=== PATIENT | female | born 2000 | race Caucasian/White ===

== ENCOUNTER 2024-05-13 23:07 | Emergency (ER) | payer SELFPAY ==
[2024-05-14 01:06] LABS: Specific Gravity > 1.030 (1.005-1.030)
[2024-05-14 01:07] LABS: Specific Gravity > 1.030 (1.005-1.030); Sqamous Epithelial <5 /HPF (None Seen); Urine Bacteria <20 /HPF (<20); Urine Bilirubin NEGATIVE (Negative); Urine Blood Negative (Negative); Urine Clarity Clear (Clear); Urine Color Light-Yellow (Yellow); Urine Culture Reflex Order NOT NEEDED; Urine Glucose NEGATIVE (Negative); Urine Ketones NEGATIVE (Negative); Urine Microscopic Reflex YN ORDER UMIC; Urine Mucus Slight /HPF (None Seen); Urine Nitrite NEGATIVE (Negative); Urine Protein TRACE (Negative); Urine RBC <5 /HPF (None Seen); Urine Urobilinogen Normal (Normal); Urine WBC <5 /HPF (<5); Urine pH 5.5 (5.0-7.0)
[2024-05-14 01:08] LABS: D-Dimer 1.283 FEUug/mL (0-0.500); PT Prothrombin Time 11.9 SECONDS (9.4-12.5); Protime INR 1.06
[2024-05-14 01:13] LABS: Absolute Eosinophils 0.1 K/uL (0-0.5); Absolute Lymphocytes (CBC) 1.3 K/uL (0.7-4.9); Absolute Monocytes 0.6 K/uL (0.1-1.3); Absolute Neutrophil 5.7 K/uL (1.8-8.0); Basophils % 0.6 % (0-1.3); Eosinophils % 1.7 % (0-4.4); Hematocrit 42.1 % (36.0-45.0); Hemoglobin 14.1 g/dL (12.0-15.0); Lymphocytes % 16.4 % (15.3-44.8); MCH 27.7 pg (27.0-35.0); MCHC 33.4 g/dL (32.0-36.0); MCV 82.9 fL (80-100); MPV 9.5 fL (7.6-11.3); Monocytes % 7.9 % (3.3-12.3); Neutrophils % 73.4 % (41.7-73.7); Nucleated Red Blood Cells % 0.2 % (0-0); Platelets 300 thou/uL (152-406); RBC Red Blood Cell Count 5.08 M/uL (3.86-4.86); Red Cell Distribution Width 13.5 % (12.1-15.2)
[2024-05-14 01:14] LABS: ALT/SGPT 21 U/L (13-56); AST/SGOT 12 U/L (15-37); Albumin 3.3 g/dL (3.4-5.0); Albumin/Globulin Ratio 0.8 (1.1-1.8); Alkaline Phosphatase 70 U/L (45-117); Anion Gap 8.5 mEq/L (5.0-15.0); BUN Blood Urea Nitrogen 8 mg/dL (7-18); Bicarbonate 24 mEq/L (21-32); Bilirubin Total 0.4 mg/dL (0.2-1.0); Globulin 3.9 g/dL (2.3-3.5); Glomerular Filtration Rate 114 ml/min (=/>90); Glucose Level 99 mg/dL (74-106); Magnesium 1.9 mg/dL (1.6-2.4); Potassium 3.5 mEq/L (3.5-5.1); Protein, Total 7.2 g/dL (6.4-8.2); Sodium Level 136 mEq/L (136-145)
[2024-05-14 01:23] LABS: Bilirubin Direct < 0.2 mg/dL (0-0.2); Bilirubin Indirect, Calculated 0.2 mg/dL (0.2-0.8); Troponin High Sensitivity < 3.0 pg/mL (<58.9)
--- NOTE | 2024-05-14 02:32 | RAD REPORT ---
TIME OF STUDY: 05/13/2024 11:48 PM CDT REASON FOR EXAM: CHEST PAIN COMPARISON: None. FINDINGS: AP view of the chest was obtained, chest 1 view. Lungs: Normal lung volume. No mass, or consolidation. Normal pulmonary vascularity.. Pleura: No pneumothorax. There is no pleural effusion. Heart and Mediastinum: Normal cardiomediastinal silhouette and great vessels.. Bones: No acute bony abnormality.. IMPRESSION: 1. No acute cardiopulmonary process. Electronically signed by: Rowdy Paul MD 05/14/2024 01:14 AM CDT RP Due to temporary technical issues with the PACS/[employer] reporting system, reports are being malcolm d by the in-house radiologist without review as a courtesy to ensure prompt reporting the interpreting radiologist is fully responsible for the content of the report. Transcribed Date/Time: 05/14/2024 2:31 AM
--- NOTE | 2024-05-14 04:38 | RAD REPORT ---
EXAM DESCRIPTION: Chest For Pe Angio CLINICAL HISTORY: CHEST PAIN COMPARISON: None Available. TECHNIQUE: CTA of the chest obtained following the uncomplicated intravenous administration of iodina danni contrast. 3-D/MIP reformatted images of the chest available for evaluation. This exam was performed according to our departmental dose-optimization program, which includes automated exposure control, adjustment of the mA and/or kV according to patient size and/or use of iterative reconstruction technique. FINDINGS: Chest: Pulmonary arteries: Contrast bolus is adequate.No filling defects identified in the pulmonary arterie s to suggest pulmonary embolus. Thyroid: No abnormalities of the visualized thyroid. Great Vessels: Great vessels have normal anatomic configuration. Thoracic Aorta: No abnormalities of the thoracic aorta identified. No aortic dissection. Heart: No cardiomegaly, significant pericardial effusion, or coronary artery atherosclerosis Lymph Nodes: No enlarged mediastinal lymph nodes identified. Esophagus: No abnormalities of the esophagus identified. Other: No additional findings. Lungs: Mild bilateral dependent atelectasis. Pleura: No pleural effusion or pneumothorax. Trachea/Airways: No abnormalities of the visualized trachea or airways. Bones: No acute osseous abnormalities identified. Upper Abdomen: Limited images of the upper abdomen demonstrate no definite abnormalities of visualize d portions of the liver, gallbladder, pancreas, spleen, adrenal glands, or kidneys. IMPRESSION: No pulmonary embolus. No aortic dissection. Electronically signed by: Alejandro Marina DO 05/14/2024 04:08 AM CDT 4ZDM Due to temporary technical issues with the PACS/[employer] reporting system, reports are being malcolm d by the in-house radiologist without review as a courtesy to ensure prompt reporting the interpreting radiologist is fully responsible for the content of the report. Transcribed Date/Time: 05/14/2024 4:38 AM
--- NOTE | 2024-05-14 04:54 | EDPHYS ---
Physician Documentation [facility] Name: Naa Garcia Age: 24 yrs Sex: Female : 2000 Arrival Date: 05/13/2024 Time: 23:07 Bed 15 Private MD: ED Physician Mateusz Forrest HPI: 05/14 00:05 This 24 yrs old Female presents to ER via Ambulatory with complaints of Chest Pain. cp 00:05 The patient or guardian reports chest pain that is located primarily in the substernal cp area. The pain does not radiate. Associated signs and symptoms: Pertinent negatives: abdominal pain, cough, diaphoresis, headache, lower extremity pain, lower extremity swelling, shortness of breath, syncope, vomiting. The chest pain is described as ripping. Duration: The patient or guardian reports a single episode, markedly improved. Patient reports pain started this evening while sitting at desk playing game and lasted about 1 and 1/2 hours with pain now markedly improved. Historical: - Allergies: 05/13 23:26 No Known Allergies; ha1 - PMHx: 23:26 Anxiety; Migraine; ha1 - PSHx: 23:26 Tonsillectomy; ha1 - Immunization history:: Adult Immunizations up to date. - Infectious Disease History:: Denies. - Social history:: Smoking status: Patient denies any tobacco usage or history of. ROS: 05/14 00:12 Constitutional: Negative for body aches, chills, fever, poor PO intake, cp Cardiovascular: Positive for chest pain, Negative for edema, palpitations, 00:12 Respiratory: Negative for cough, shortness of breath, wheezing, cp 00:12 Abdomen/GI: Negative for abdominal pain, vomiting, diarrhea, constipation, 00:12 Eyes: Negative for injury, pain, redness, and discharge, cp 00:12 ENT: Negative for drainage from ear(s), ear pain, sore throat, difficulty swallowing, difficulty handling secretions, 00:12 Back: Negative for radiated pain, 00:12 Neuro: Negative for altered mental status, dizziness, headache, numbness, syncope, near cp syncope, weakness, 00:12 All other systems are negative, cp Exam: 05/13 23:25 ECG was reviewed by the Attending Physician. cp 05/14 00:15 Constitutional: The patient appears in no acute distress, alert, awake, comfortable, cp non-diaphoretic, non-toxic, well developed, well nourished, 00:15 Head/Face: Normocephalic, atraumatic. cp 00:15 Eyes: Periorbital structures: appear normal, Conjunctiva: normal, no exudate, no injection, Sclera: no appreciated abnormality, Lids and lashes: appear normal, bilaterally, 00:15 ENT: External ear(s): are unremarkable, Nose: is normal, Mouth: Lips: moist, Oral mucosa: pink and intact, moist, Posterior pharynx: Airway: no evidence of obstruction, patent, 00:15 Chest/axilla: Inspection: normal, 00:15 Cardiovascular: Rate: tachycardic, Rhythm: regular, 00:15 Respiratory: the patient does not display signs of respiratory distress, Respirations: normal, no use of accessory muscles, no retractions, labored breathing, is not present, Breath sounds: are clear throughout, no decreased breath sounds, no stridor, no wheezing, 00:15 Abdomen/GI: Inspection: abdomen appears normal, Palpation: abdomen is soft and non-tender, in all quadrants, 00:15 Back: pain, is absent, ROM is normal, cp 00:15 Neuro: Orientation: to person, place \T\ time. Mentation: is normal, Motor: moves all cp fours, strength is normal, Sensation: is normal, Vital Signs: 05/13 23:12 BP 128 / 81; Pulse 111; Resp 20 S; Temp 97.6; Pulse Ox 100% on R/A; Weight 99.79 kg; ha1 Height 5 ft. 8 in. ; 05/14 01:09 BP 117 / 74; Pulse 91; Resp 17; Temp 97.2; Pulse Ox 99% ; br2 02:00 BP 122 / 73; Pulse 86; Resp 18 S; Temp 97.2; Pulse Ox 97% on R/A; Pain 0/10; br2 02:57 BP 104 / 74; Pulse 90; Resp 18 S; Pulse Ox 98% on R/A; br2 03:55 BP 106 / 74; Pulse 92; Resp 17 S; Temp 97.2; Pulse Ox 100% on R/A; Pain 0/10; br2 04:31 BP 112 / 65; Pulse 74; Resp 14; Pulse Ox 96% ; Pain 0/10; br2 05/13 23:12 Body Mass Index 33.45 (99.79 kg, 172.72 cm) ha1 02:00 Pain Scale: Adult br2 03:55 Pain Scale: Adult br2 04:31 Pain Scale: Adult br2 MDM: 05/13 23:17 Medical Screening Exam initiated 05/14 00:00 Differential diagnosis: acute myocardial infarction, acute pericarditis, cholecystitis, cp Cholelithiasis pancreatitis, peptic ulcer disease, pericarditis, pleurisy, pneumonia, pneumothorax, pulmonary embolus, thoracic aortic disection. 04:23 Data reviewed: vital signs, nurses notes, lab test result(s), EKG, radiologic studies, cp CT scan, plain films, and as a result, I will discharge patient. 04:23 I considered the following discharge prescriptions or medication management in the emergency department Medications were administered in the Emergency Department. See MAR. Independent interpretation of the following test(s) in the Emergency Department EKG: See my EKG interpretation above. 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 Response to treatment: the patient's symptoms have markedly improved after treatment, and as a result, I will discharge patient. Special discussion: Based on the patient's history, exam, and Dx evaluation, there is no indication for emergent intervention or inpatient Tx. It is understood by the patient/guardian that if the Sx's persist or worsen they need to return immediately for re-evaluation. 05/13 23:18 Order name: Urinalysis w/ reflexes; Complete Time: : 05/14 01:41 Interpretation: Normal except: Urine SG > 1.030; UPROT TRACE. 05/13 23:18 Order name: Test, Urine; Complete Time: : 05/13 23:48 Order name: Basic Metabolic Panel; Complete Time: :41 05/13 23:48 Order name: CBC with Diff; Complete Time: : 05/13 23:48 Order name: D-Dimer; Complete Time: 01:41 05/13 23:48 Order name: LFT's; Complete Time: 01:41 05/13 23:48 Order name: Magnesium; Complete Time: 01:41 05/13 23:48 Order name: PT-INR; Complete Time: 01:41 05/13 23:48 Order name: Troponin HS; Complete Time: 01:41 05/14 04:23 Order name: Troponin High Sensitivity 05/13 23:48 Order name: XRAY Chest (1 view) 05/14 02:47 Interpretation: Report review. 05/14 01:41 Order name: CT Chest For PE Angio 05/13 23:18 Order name: EKG; Complete Time: 23:18 05/13 23:18 Order name: EKG - Nurse/Tech; Complete Time: 23:24 05/13 23:48 Order name: Cardiac monitoring; Complete Time: 00:17 05/13 23:48 Order name: IV Saline Lock; Complete Time: 00:17 05/13 23:48 Order name: Labs collected and sent; Complete Time: 00:17 05/13 23:48 Order name: O2 Per Protocol; Complete Time: 00:17 05/13 23:48 Order name: O2 Sat Monitoring; Complete Time: 00:17 EC/01 23:25 Rate is 112 beats/min. Rhythm is regular. IL interval is normal. QRS interval is cp normal. QT interval is normal. T waves are Inverted in leads III, aVF, aVR, V3. Interpreted by me. Reviewed by me. Administered Medications: No medications were administered Disposition Summary: 05/14/24 04:53 Discharge Ordered Notes: Location: Home cp Problem: new cp Symptoms: have improved cp Condition: Stable cp Diagnosis - Chest pain, unspecified cp Followup: cp - With: Private Physician - When: 2 - 3 days - Reason: Recheck today's complaints Discharge Instructions: - Discharge Summary Sheet cp - Nonspecific Chest Pain, Adult cp Forms: - Medication Reconciliation Form cp - Antibiotic Education cp - Prescription Opioid Use cp - Patient Portal Instructions cp - Leadership Thank You Letter cp Prescriptions: - Ibuprofen 800 mg Oral Tablet - take 1 tablet ORAL route every 8 hours As needed take with food; 30 tablet; cp Refills: 0, Product Selection Permitted - Pepcid 20 mg Oral Tablet - take 1 tablet ORAL route every 12 hours for 10 days; 20 tablet; Refills: 0, cp Product Selection Permitted Signatures: Dispatcher [employer] EDMS Mateusz Pennington PA PA cp Ayala, Heidy RN RN ha1 Corrections: (The following items were deleted from the chart) 23:18 23:18 Urinalysis+U.LAB.BRZ ordered. EDMS EDMS 23:18 23:18 Test, Urine+UC.LAB.BRZ ordered. EDMS EDMS 23:49 23:49 BASIC METABOLIC PANEL+C.LAB.BRZ ordered. EDMS EDMS 23:49 23:49 CBC+H.LAB.BRZ ordered. EDMS EDMS 23:49 23:49 D-DIMER+COAG.LAB.BRZ ordered. EDMS EDMS 23:49 23:49 HEPATIC FUNCTION+C.LAB.BRZ ordered. EDMS EDMS 23:49 23:49 MAGNESIUM+C.LAB.BRZ ordered. EDMS EDMS 23:49 23:49 PROTIME (+INR)+COAG.LAB.BRZ ordered. EDMS EDMS 23:49 23:49 Troponin High Sensitivity+C.LAB.BRZ ordered. EDMS EDMS 23:49 23:49 Chest Single View+RAD.RAD.BRZ ordered. EDMS EDMS
--- NOTE | 2024-05-14 04:54 | ER ---
Nurse's Notes [facility] Name: Naa Garcia Age: 24 yrs Sex: Female : 2000 Arrival Date: 05/13/2024 Time: 23:07 Bed 15 Private MD: Diagnosis: Chest pain, unspecified Presentation: 05/13 23:12 Chief complaint: Patient states: chest pain that started one hour ago. ha1 23:12 Coronavirus screen: Vaccine status: Patient reports being unvaccinated. Ebola Screen: ha1 No symptoms or risks identified at this time. Initial Sepsis Screen: Does the patient meet any 2 criteria? No. Patient's initial sepsis screen is negative. Does the patient have a suspected source of infection? No. Patient's initial sepsis screen is negative. Risk Assessment: Do you want to hurt yourself or someone else? Patient reports no desire to harm self or others. Onset of symptoms was May 13, 2024. 23:12 Method Of Arrival: Ambulatory ha1 23:12 Acuity: KASIA 3 ha1 Triage Assessment: 05/14 05:39 General:. br2 05:39 General: Appears in no apparent distress. comfortable. Pain: Denies pain. br2 05:40 General: Behavior is calm, cooperative. br2 Historical: - Allergies: 05/13 23:26 No Known Allergies; ha1 - PMHx: 23:26 Anxiety; Migraine; ha1 - PSHx: 23:26 Tonsillectomy; ha1 - Immunization history:: Adult Immunizations up to date. - Infectious Disease History:: Denies. - Social history:: Smoking status: Patient denies any tobacco usage or history of. Screenin:27 Abuse screen: Denies threats or abuse. Denies injuries from another. Nutritional ha1 screening: No deficits noted. Tuberculosis screening: No symptoms or risk factors identified. 05/14 01:[address] [facility] ED Fall Risk Assessment (Adult) History of falling in the last 3 months, br2 including since admission No falls in past 3 months (0 pts) Confusion or Disorientation No (0 pts) Intoxicated or Sedated No (0 pts) Impaired Gait No (0 pts) Mobility Assist Device Used No (0 pt) Altered Elimination No (0 pt) Score/Fall Risk Level 0 - 2 = Low Risk Oriented to surroundings. Assessment: 01:30 Reassessment: Patient and/or family updated on plan of care and expected duration. Pain br2 level reassessed. Patient is alert, oriented x 3, equal unlabored respirations, skin warm/dry/pink. Patient states feeling better. Patient states symptoms have improved. Pain: Denies pain. Pain: Denies pain. Pain does not radiate. Pain began PRIOR TO ARRIVAL. Cardiovascular: Reports chest pain, PRIOR TO ARRIVAL. 02:15 Reassessment: No changes from previously documented assessment. Patient and/or family br2 updated on plan of care and expected duration. Pain level reassessed. Patient is alert, oriented x 3, equal unlabored respirations, skin warm/dry/pink. Patient states feeling better. 03:30 Reassessment: No changes from previously documented assessment. Patient and/or family br2 updated on plan of care and expected duration. Pain level reassessed. Patient is alert, oriented x 3, equal unlabored respirations, skin warm/dry/pink. Patient denies pain at this time. Patient states feeling better. Patient states symptoms have improved. 04:30 Reassessment: Patient and/or family updated on plan of care and expected duration. Pain br2 level reassessed. Patient is alert, oriented x 3, equal unlabored respirations, skin warm/dry/pink. Patient denies pain at this time. Patient states feeling better. Patient states symptoms have improved. Vital Signs: 05/13 23:12 BP 128 / 81; Pulse 111; Resp 20 S; Temp 97.6; Pulse Ox 100% on R/A; Weight 99.79 kg; ha1 Height 5 ft. 8 in. ; 05/14 01:09 BP 117 / 74; Pulse 91; Resp 17; Temp 97.2; Pulse Ox 99% ; br2 02:00 BP 122 / 73; Pulse 86; Resp 18 S; Temp 97.2; Pulse Ox 97% on R/A; Pain 0/10; br2 02:57 BP 104 / 74; Pulse 90; Resp 18 S; Pulse Ox 98% on R/A; br2 03:55 BP 106 / 74; Pulse 92; Resp 17 S; Temp 97.2; Pulse Ox 100% on R/A; Pain 0/10; br2 04:31 BP 112 / 65; Pulse 74; Resp 14; Pulse Ox 96% ; Pain 0/10; br2 11/01 23:12 Body Mass Index 33.45 (99.79 kg, 172.72 cm) ha1 02:00 Pain Scale: Adult br2 03:55 Pain Scale: Adult br2 04:31 Pain Scale: Adult br2 ED Course: 05/13 23:09 Patient arrived in ED. im 23:17 Mateusz Pennington PA is PHCP. cp 23:17 Mateusz Forrest MD is Attending Physician. cp 23:26 Triage completed. ha1 05/14 00:17 Basic Metabolic Panel Sent. ha1 00:17 CBC with Diff Sent. ha1 00:17 D-Dimer Sent. ha1 00:17 LFT's Sent. ha1 00:17 Magnesium Sent. ha1 00:17 PT-INR Sent. ha1 00:17 Troponin HS Sent. ha1 00:17 Test, Urine Sent. ha1 00:18 Urinalysis w/ reflexes Sent. ha1 00:18 Inserted saline lock: 20 gauge in left antecubital area, using aseptic technique. Blood ha1 collected. Flushed with 10 mL NS. 00:22 Fabi Gross, RN is Primary Nurse. br2 00:37 XRAY Chest (1 view) In Process Unspecified. EDMS 01:30 Patient has correct armband on for positive identification. Bed in low position. Call br2 light in reach. Side rails up X 1. Provided Education on: PLAN OF CARE. Client placed on continuous cardiac and pulse oximetry monitoring. NIBP monitoring applied. secured entrance monitor on. Door closed. Noise minimized. Lights dimmed. 02:41 CT Chest For PE Angio In Process Unspecified. EDMS 05:39 Patient DISCHARGED. br2 05:40 No provider procedures requiring assistance completed. IV discontinued, intact, br2 bleeding controlled, No redness/swelling at site. Pressure dressing applied. Administered Medications: No medications were administered Medication: 01:30 VIS not applicable for this client. br2 Outcome: 04:53 Discharge ordered by . cp 05:40 Discharged to home ambulatory, br2 05:40 Condition: improved 05:40 Discharge instructions given to patient, Instructed on discharge instructions, follow up and referral plans. Demonstrated understanding of instructions, follow-up care, medications, Prescriptions given X 2, 05:40 Patient left the ED. br2 Signatures: Dispatcher [employer] EDMS Mateusz Pennington PA PA cp Vera, Kesha, RN RN ha1 Esther Barcenas Belinda, RN RN br2
[2024-05-14 06:23] VITALS: TEMP 97.2
[2024-05-14 06:28] VITALS: BP 112/65; O2SAT 96
--- NOTE | 2024-05-16 12:18 | EKG ---
Test Date: 2024-05-13 Test Time: 23:19:44 Laundrette Owner: JOHAN MEASUREMENT RESULTS: Intervals: Rate: 112 [place]: 126 QRSD: 78 QT: 304 QTc: 414 [place]: P: [place]: 126 QRS: 138 T: -22 INTERPRETIVE STATEMENTS: Sinus tachycardia Nonspecific T wave abnormality Abnormal ECG No previous ECG available for comparison Electronically Signed On 05-16-24 12:15:48 ACQUISITIONS LIBRARIAN by Preston Rose
== END 2024-05-14 05:40 | disposition home or self-care (01) ==
LOC: ER 23:07
DX: R07.9 Chest pain, unspecified (principal); F41.9 Anxiety disorder, unspecified
CPT/HCPCS: 36415; 71045; 71275; 80048; 80076; 81001; 81025; 83735; 84484; 85025; 85379; 85610; 93005; 99284; Q9967